=== PATIENT | female | born 1945 | race African-American/Black ===

== ENCOUNTER 2018-05-20 12:31 | Emergency (ER) | payer MEDICARE, OTHER ==
[~2018-05-20 12:31] MED LIST: Iopamidol 370 76% 100 ML VIAL ONE
--- NOTE | 2018-05-20 12:52 | CT ---
CT BRAIN: DATE: 05/20/18. PROVIDED CLINICAL HISTORY: Speech deficit. FINDINGS: No comparisons. The ventricular system appears normal in size and morphology. There is no evidence for intracranial hemorrhage or mass effect. 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 The basilar cisterns appear patent. No shift of the midline structures. The extracranial soft tissues and osseous structures demonstrate an unremarkabl e CT appearance. IMPRESSION: No evidence for intracranial hemorrhage or mass effect. Remote ischemic changes as above. Findings communicated to Dr. Capellan at 12:41 p.m. 05/20/18. CODE CR POS: HELENA
[2018-05-20 13:00] LABS: #Basophils 0.1 thou/uL (0.0-0.2); #Eosinphils 0.6 thou/uL (0.0-0.7); #Lymphocytes 2.1 thou/uL (1.20-3.40); #Monocytes 0.5 thou/uL (0.11-0.59); #Neutrophils 2.3 thou/uL (1.40-6.50); %Basophils 2.2 % (0.0-1.0); %Eosinophils 10.4 % (0.0-10.0); %Lymphocytes 38.1 % (21.0-51.0); %Neutrophils 41.3 % (42.0-75.0); Hemoglobin 14.3 g/dL (12.0-16.0); Mean Corpuscular HGB CONC 32.8 g/dL (32.0-36.0); Mean Corpuscular Volume 94.6 fL (78.0-98.0); Mean Platelet Volume 6.1 fL (7.4-10.4); Platelet Count 315 thou/uL (130-400); RBC Distribution Width 12.4 % (11.5-14.5); Red Blood Cell (RBC) Count 4.59 mill/uL (4.20-5.40); White Blood Cell (WBC) Count 5.6 thou/uL (4.8-10.8)
[2018-05-20 13:09] LABS: ALT (SGPT) 14 U/L (8-55); AST (SGOT) 22 U/L (5-34); Albumin 4.6 g/dL (3.4-4.8); Alkaline Phosphatase 57 U/L (40-150); Anion Gap 15 mmol/L (10-20); BUN (Urea Nitrogen) 13 mg/dL (9.8-20.1); Bilirubin, Total 0.4 mg/dL (0.2-1.2); Calc. Creatinine Clearance 0 mL/min (70-130); Calcium 10.4 mg/dL (7.8-10.44); Carbon Dioxide 23 mmol/L (23-31); Chloride 107 mmol/L (98-107); Estimated GFR-MDRD 64; Globulin 3.7 g/dL (2.4-3.5); Glucose 102 mg/dL (80-115); Potassium 3.8 mmol/L (3.5-5.1); Protein, Total 8.3 g/dL (6.0-8.3); Sodium 141 mmol/L (136-145); Troponin I Less than 0.010 ng/mL (< 0.028)
--- NOTE | 2018-05-20 13:19 | CT ---
CT ANGIOGRMA WITH IV CONTRAST AND 3D MIP RECONSTRUCTIONS BRAIN AND GREAT VESSELS NECK: DATE: 05/20/18. PROVIDED CLINICAL HISTORY: Slurred speech. FINDINGS: The visualized lung apices appear clear. There is a normal 3-vessel configuration of the great vesse ls of the arch. There is mild calcified stenosis involving the origin of the right internal carotid artery. The great vessels demonstrate no additional focal stenosis. There is no evidence for a foca l vessel stenosis, branch occlusion, or aneurysm involving the intracranial circulation. Vascular ca lcification is seen involving the right vertebral artery. Bilateral thyroid hypodensities, incomplet priya characterized greatest on the right measuring about a centimeter. IMPRESSION: 1. 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 2. Unremarkable CT angiogram brain. POS: HELENA
--- NOTE | 2018-05-20 14:20 | RAD ---
CHEST 1 VIEW: HISTORY: Right-sided weakness. Slurred speech. COMPARISON: None. FINDINGS: Portable semiupright chest demonstrates an upper normal cardiac silhouette. The pulmonary vessels ar e slightly prominent. Chronic interstitial changes are favored. No consolidation or mass. No pneum othorax or osseous abnormalities. IMPRESSION: Interstitial prominence which may be due to chronic change. Superimposed infiltrate cannot be exclud ed. POS: PPP
== END 2018-05-20 13:37 | disposition short-term general hospital (02) ==
LOC: NAV ERS 12:31
DX: I63.9 Cerebral infarction, unspecified (principal); G45.9 Transient cerebral ischemic attack, unspecified; I10 Essential (primary) hypertension; E78.5 Hyperlipidemia, unspecified; E11.9 Type 2 diabetes mellitus without complications; Z87.891 Personal history of nicotine dependence; Z79.899 Other long term (current) drug therapy; Z79.82 Long term (current) use of aspirin; Z86.73 Personal history of transient ischemic attack (TIA), and cerebral infarction without residual deficits
CPT/HCPCS: 70450; 70498; 71045; 80053; 84484; 85025; 93005

== ENCOUNTER 2022-03-01 10:24 | Emergency (ER) | payer MEDICARE, MEDICAID ==
[2022-03-01] MEDS ORDERED: Sodium Chloride 0.9% 500 ML ONE ×2 (11:09→12:05)
[2022-03-01] MEDS ORDERED: Ondansetron PF 4 MG/2 ML Vial ONE (11:09)
[2022-03-01] MEDS ORDERED: Morphine 4 MG/ML VIAL ONE (11:09)
[2022-03-01 11:23] LABS: #Basophils 0.1 thou/uL (0.0-0.2); #Eosinphils 0.8 thou/uL (0.0-0.7); #Lymphocytes 1.8 thou/uL (1.20-3.40); #Monocytes 0.5 thou/uL (0.11-0.59); %Basophils 1.8 % (0.0-1.0); %Eosinophils 13.2 % (0.0-10.0); %Lymphocytes 28.9 % (21.0-51.0); %Monocytes 8.3 % (0.0-10.0); %Neutrophils 47.9 % (42.0-75.0); Mean Corpuscular HGB CONC 29.5 g/dL (32.0-36.0); Mean Corpuscular Hemoglobin 25.1 pg (27.0-31.0); Mean Platelet Volume 8.1 fL (7.4-10.4); Platelet Count 334 thou/uL (130-400); RBC Distribution Width 17.7 % (11.5-14.5); White Blood Cell (WBC) Count 6.2 thou/uL (4.8-10.8)
[2022-03-01 11:26] LABS: ALT (SGPT) 14 U/L (8-55); AST (SGOT) 19 U/L (5-34); Albumin 4.9 g/dL (3.4-4.8); Alkaline Phosphatase 81 U/L (40-110); Anion Gap 20 mmol/L (10-20); BUN (Urea Nitrogen) 14 mg/dL (9.8-20.1); Bilirubin, Total 0.5 mg/dL (0.2-1.2); Calc. Creatinine Clearance 0 mL/min (70-130); Calcium 10.3 mg/dL (7.8-10.44); Carbon Dioxide 21 mmol/L (23-31); Chloride 102 mmol/L (98-107); Estimated GFR 47; Globulin 3.2 g/dL (2.4-3.5); Glucose 116 mg/dL (83-110); Lipase 28 U/L (8-78); Potassium 3.6 mmol/L (3.5-5.1); Protein, Total 8.1 g/dL (5.8-8.1); Sodium 139 mmol/L (136-145)
[2022-03-01] MEDS ORDERED: Sodium Chloride 0.9% 1,000 ML ONE (12:05)
[2022-03-01 12:06] LABS: Bilirubin Negative (Negative); Blood, Urine Negative (Negative); Clarity Clear (Clear); Glucose, Urine (Dipstick) Negative (Negative); Ketone, Urine Negative (Negative); Leukocyte Trace (Negative); Nitrite Negative (Negative); Protein, Urine (Dipstick) Negative (Neg-Trace); Urobilinogen 0.2 mg/dL (Less than 2)
[2022-03-01 12:22] LABS: Bacteria/HPF None Seen HPF (None Seen); RBC/HPF None Seen HPF (0-3); Squamous Epithelial None Seen HPF (0-3); WBC/HPF 0-3 HPF (0-3)
[2022-03-01] MEDS ORDERED: predniSONE 20 MG TAB ONE (12:55)
== END 2022-03-01 13:37 | disposition home or self-care (01) ==
LOC: NAV ERS 10:24
DX: M54.16 Radiculopathy, lumbar region (principal); I10 Essential (primary) hypertension; E11.9 Type 2 diabetes mellitus without complications; J44.9 Chronic obstructive pulmonary disease, unspecified; Z86.73 Personal history of transient ischemic attack (TIA), and cerebral infarction without residual deficits; Z87.891 Personal history of nicotine dependence; Z79.01 Long term (current) use of anticoagulants; Z79.899 Other long term (current) drug therapy; Z79.82 Long term (current) use of aspirin
CPT/HCPCS: 74177; 80053; 81003; 81015; 83605; 83690; 84484; 85025; 87040; 96361; 96374; 96375; J2270; J2405; J7030; J7050; J7512; J7620

== ENCOUNTER 2023-01-03 08:55 | Outpatient (CLI) | payer OTHER ==
[2023-01-03] MEDS ORDERED: Iopamidol 370 76% 100 ML VIAL ONE (09:00)
== END 2023-01-03 08:56 | disposition home or self-care (01) ==
LOC: NAV CT 08:55
PROVIDERS: ATTEND Family Medicine
DX: Z01.818 Encounter for other preprocedural examination (principal); N28.89 Other specified disorders of kidney and ureter
CPT/HCPCS: 36415; 74177; 82565; Q9967

== ENCOUNTER 2023-07-17 08:31 | Outpatient (CLI) | payer OTHER ==
[2023-07-17] MEDS ORDERED: Iopamidol 370 76% 100 ML VIAL ONE (09:00)
== END 2023-07-17 08:32 | disposition home or self-care (01) ==
LOC: NAV CT 08:31
PROVIDERS: ATTEND Urology
DX: Z01.812 Encounter for preprocedural laboratory examination (principal); N28.89 Other specified disorders of kidney and ureter
CPT/HCPCS: 36415; 74178; 82565; Q9967

== ENCOUNTER 2024-07-09 07:47 | Outpatient (CLI) | payer OTHER ==
[2024-07-09] MEDS ORDERED: Iopamidol 370 76% 100 ML VIAL ONE (09:00)
== END 2024-07-09 07:48 | disposition home or self-care (01) ==
LOC: NAV CT 07:47
PROVIDERS: ATTEND Family Medicine
DX: Z01.812 Encounter for preprocedural laboratory examination (principal); N28.89 Other specified disorders of kidney and ureter; N28.1 Cyst of kidney, acquired
CPT/HCPCS: 36415; 74178; 82565; Q9967